=== PATIENT | male | born 1980 | race African-American/Black ===

== ENCOUNTER 2019-07-17 07:23 | Emergency (ER) | payer OTHER, MEDICARE ==
[2019-07-17] MEDS ORDERED: ONDANSETRON 4 MG TAB.RAPDIS PO ONE (07:34)
[2019-07-17 08:05] LABS: ABSOLUTE EOSINOPHILS # (AUTO) 0.5 10^3/uL (0.0-0.6); ABSOLUTE LYMPHOCYTES (AUTO) 2.6 10^3/uL (0.5-4.7); ABSOLUTE MONOCYTES (AUTO) 0.6 10^3/uL (0.1-1.4); ABSOLUTE NEUT (AUTO) 3.1 10^3/uL (1.7-8.2); BASOPHILS % (AUTO) 0.3 % (0-2); HEMATOCRIT 40.6 % (37.9-51.0); HEMOGLOBIN 13.6 g/dL (13.5-17.0); LYMPHOCYTES % (AUTO) 38.6 % (13-45); MEAN CORPUSCULAR HEMOGLOBIN 27.6 pg (27.0-33.4); MEAN CORPUSCULAR HGB CONC 33.4 g/dL (32.0-36.0); MEAN CORPUSCULAR VOLUME 83 fl (80-97); MONOCYTES % (AUTO) 8.8 % (3-13); PLATELET COUNT 239 10^3/uL (150-450); RED BLOOD COUNT 4.92 10^6/uL (4.35-5.55); RED CELL DISTRIBUTION WIDTH 13.7 % (11.5-14.0); SEGMENTED NEUTROPHILS % (AUTO) 45.3 % (42-78); TOTAL CELLS COUNTED % (AUTO) 100 %; WHITE BLOOD COUNT 6.8 10^3/uL (4.0-10.5)
[2019-07-17 08:19] LABS: ALBUMIN 4.5 g/dL (3.5-5.0); ALKALINE PHOSPHATASE 65 U/L (38-126); ANION GAP 8 (5-19); ASPARTATE AMINO TRANSFERASE 35 U/L (17-59); BILIRUBIN,DIRECT 0.1 mg/dL (0.0-0.4); BILIRUBIN,TOTAL 1.1 mg/dL (0.2-1.3); BLOOD UREA NITROGEN 16 mg/dL (7-20); CALCIUM 9.7 mg/dL (8.4-10.2); CARBON DIOXIDE 29 mmol/L (22-30); CHLORIDE 103 mmol/L (98-107); GLUCOSE 89 mg/dL (75-110); POTASSIUM 4.4 mmol/L (3.6-5.0); TOTAL PROTEIN 7.6 g/dL (6.3-8.2)
[2019-07-17 09:46] LABS: APPEARANCE,URINE CLEAR; BILIRUBIN,URINE NEGATIVE (NEGATIVE); COLOR,URINE STRAW; GLUCOSE, URINE NEGATIVE (NEGATIVE); KETONES,URINE NEGATIVE (NEGATIVE); LEUKOCYTE ESTERASE,URINE NEGATIVE (NEGATIVE); NITRITE,URINE NEGATIVE (NEGATIVE); PROTEIN,URINE NEGATIVE (NEGATIVE); URINE SPECIFIC GRAVITY 1.006; UROBILINOGEN,URINE NEGATIVE mg/dL (<2.0)
--- NOTE | 2019-07-17 10:45 | ER Document Report ---
ED General - General Chief Complaint: Vomiting Stated Complaint: WEAKNESS Time Seen by Provider: 07/17/19 07:28 Primary Care Provider: OCTAVIO NAM PA-C [Primary Care Provider] - Follow up as needed Mode of Arrival: Ambulatory Information source: Patient - [facility] Notes: Patient presents complaining of some generalized weakness. States he has had some nausea as well as some diarrhea. States she is just had lack of energy. He denies any's pain. No fevers or rashes. Patient states his symptoms have been mild to moderate. Nothing makes them better or worse. There is no radiation of the symptoms. They have been constant for the last 2 to 3 days. - Related Data Allergies/Adverse Reactions: No Known Allergies Allergy (Unverified 07/17/19 07:32) Past Medical History - General Information source: Patient - Social History Smoking Status: Never Smoker Frequency of alcohol use: None Drug Abuse: None Family History: Reviewed & Not Pertinent Patient has suicidal ideation: No Patient has homicidal ideation: No Psychiatric Medical History: Reports: Hx Attention Deficit Hyperactivity Disorder Review of Systems - Review of Systems Constitutional: Malaise, Weakness. denies: Chills, Fever Cardiovascular: denies: Chest pain, Palpitations Respiratory: denies: Cough, Short of breath -: Yes All other systems reviewed and negative Physical Exam - Vital signs Vitals: Pulse Resp BP Pulse Ox 81 16 131/84 H 95 07/17/19 07:27 07/17/19 07:27 07/17/19 07:27 07/17/19 07:27 Interpretation: Normal - General General appearance: Appears well, Alert - HEENT Head: Normocephalic, Atraumatic Eyes: Normal Pupils: PERRL - Respiratory Respiratory status: No respiratory distress Chest status: Nontender Breath sounds: Normal Chest palpation: Normal - Cardiovascular Rhythm: Regular Heart sounds: Normal auscultation Murmur: No - Abdominal Inspection: Normal Distension: No distension Bowel sounds: Normal Tenderness: Nontender Organomegaly: No organomegaly - Back Back: Normal, Nontender - Extremities General upper extremity: Normal inspection, Nontender, Normal color, Normal ROM, Normal temperature General lower extremity: Normal inspection, Nontender, Normal color, Normal ROM, Normal temperature, Normal weight bearing. No: Ghassan's sign - Neurological Neuro grossly intact: Yes Cognition: Normal Orientation: AAOx4 [place] Coma Scale Eye Opening: Spontaneous [place] Coma Scale Verbal: Oriented [place] Coma Scale Motor: Obeys Commands [place] Coma Scale Total: 15 Speech: Normal Motor strength normal: LUE, RUE, LLE, RLE Sensory: Normal - Psychological Associated symptoms: Normal affect, Normal mood - Skin Skin Temperature: Warm Skin Moisture: Dry Skin Color: Normal Course - Re-evaluation Re-evalutation: 07/17/19 10:44 Patient reexamined just now. Vital signs are unremarkable. Patient resting comfortably in the bed. Laboratory exam is unremarkable as well. I feel this patient most likely has a viral syndrome and I will discharge and follow-up as an outpatient. - Vital Signs Vital signs: Temp Pulse Resp BP Pulse Ox 81 16 131/84 H 95 07/17/19 07:27 07/17/19 07:27 07/17/19 07:27 07/17/19 07:27 - Laboratory Result Diagrams: 07/17/19 07:40 07/17/19 07:40 Laboratory results interpreted by me: 07/17/19 07:40 Eos % (Auto) 7.0 H Discharge - Discharge Clinical Impression: Viral syndrome Condition: Stable Disposition: HOME, SELF-CARE Instructions: Viral Syndrome ([facility]) Additional Instructions: Please call your primary care doctor as soon as possible to arrange follow-up Prescriptions: Ondansetron [Zofran Odt 4 mg Tablet] 1 - 2 tab PO Q4H PRN #15 tab.rapdis PRN Reason: For Nausea/Vomiting Referrals: OCTAVIO NAM PA-C [Primary Care Provider] - Follow up tomorrow
[2019-07-17 10:55] VITALS: BP 120/78
== END 2019-07-17 10:54 | disposition home or self-care (01) ==
LOC: ER 07:23
DX: B34.9 Viral infection, unspecified (principal); R53.1 Weakness; R19.7 Diarrhea, unspecified; R11.2 Nausea with vomiting, unspecified
CPT/HCPCS: 36415; 85025; 80053; 81001; S0119; 99283

== ENCOUNTER 2019-10-14 10:41 | Observation (INO) | payer MEDICARE, OTHER ==
--- NOTE | 2019-10-14 13:18 | ER Document Report ---
HPI - HPI Patient complains to provider of: Rash to groin area Time Seen by Provider: 10/14/19 13:12 Onset: Other - Monday Severity: Severe Pain Level: 5 Context: 38-year-old male with no prior history reporting he is not sexually active presents the emergency department with rash to his groin area. Reports it started on Monday. Reports it is red and he has noticed some pus. Denies pain with food. Reports he is voiding without problems. Denies fever vomiting diarrhea. Reports he has been belching a lot. Denies penile discharge. Denies testicular pain. Associated Symptoms: None Exacerbated by: Denies Relieved by: Denies Similar symptoms previously: No Recently seen / treated by doctor: No - REPRODUCTIVE Reproductive: DENIES: : Past Medical History - General Information source: Patient - Social History Smoking Status: Never Smoker Cigarette use (# per day): No Frequency of alcohol use: None Drug Abuse: None Family History: Reviewed & Not Pertinent Patient has suicidal ideation: No Patient has homicidal ideation: No Psychiatric Medical History: Reports: Hx Attention Deficit Hyperactivity Disorder Surgical Hx: Negative Vertical Provider Document - CONSTITUTIONAL Agree With Documented VS: Yes Exam Limitations: No Limitations General Appearance: WD/WN, No Apparent Distress - INFECTION CONTROL TRAVEL OUTSIDE OF THE [place] IN LAST 30 DAYS: No - HEENT HEENT: Atraumatic, Normocephalic, PERRLA. negative: Conjuctival Injection - NECK Neck: Normal Inspection, Supple. negative: Lymphadenopathy-Left, Lymphadenopathy-Right - RESPIRATORY Respiratory: Breath Sounds Normal, No Respiratory Distress - CARDIOVASCULAR Cardiovascular: Regular Rate - GI/ABDOMEN Gastrointestinal: Abdomen Soft, Abdomen Non-Tender - MUSCULOSKELETAL/EXTREMETIES Musculoskeletal/Extremeties: MAEW, FROM, Non-Tender - NEURO Level of Consciousness: Awake, Alert, Appropriate - DERM Integumentary: Warm, Dry Course - Re-evaluation Re-evalutation: 10/14/19 16:14 This 38-year-old male presents emergency department with complaints of rash to his groin. Upon assessment it was noted he had a scrotal abscess. Dr. Stuart was contacted. Dr. Stuart assessed patient and is taking him to the OR. Dictation of this chart was performed using voice recognition software; therefore, there may be some unintended grammatical errors. - Vital Signs Vital signs: Temp Pulse Resp BP Pulse Ox 98.7 F 100 16 150/95 H 96 10/14/19 13:12 10/14/19 11:11 10/14/19 13:12 10/14/19 11:11 10/14/19 13:12 - Consults dr stuart Time consulted: 15:15 Reason for consultation: 10/14/19 15:15 scrotal abscess Discharge - Discharge Clinical Impression: Groin rash, Scrotal abscess Condition: Stable Disposition: ADMITTED INPATIENT
[2019-10-14 13:40] LABS: APPEARANCE,URINE CLEAR; BILIRUBIN,URINE NEGATIVE (NEGATIVE); COLOR,URINE YELLOW; GLUCOSE, URINE NEGATIVE (NEGATIVE); KETONES,URINE NEGATIVE (NEGATIVE); LEUKOCYTE ESTERASE,URINE NEGATIVE (NEGATIVE); NITRITE,URINE NEGATIVE (NEGATIVE); PROTEIN,URINE NEGATIVE (NEGATIVE); UROBILINOGEN,URINE NEGATIVE mg/dL (<2.0)
--- NOTE | 2019-10-14 16:56 | PDOC H&P ---
History of Present Illness Admission Date/PCP: GRISEL MARX MD Patient complains of: Scrotal pain, swelling History of Present Illness: RADHA MUÑIZ is a 38 year old male Presents to the emergency room via ground rescue complaining 1 week history of swelling, pain, drainage from right hemiscrotum. Patient has a remote history of right testicular torsion. Patient seen in the emergency department where he was found to have swelling, redness, tenderness and an open wound to the right hemiscrotum. Surgery was consulted and he was advised drainage procedure in the operating room. Past Medical History Medical History: None Psychiatric Medical History: Reports: Attention Deficit Hyperactivity Disorder Past Surgical History Past Surgical History: Detorsion of right testicle Social History Information Source: Patient Smoking Status: Never Smoker Electronic Cigarette use?: No Hx Recreational Drug Use: No Family History Family History: None, Reviewed & Not Pertinent Parental Family History Reviewed: No Children Family History Reviewed: No Sibling(s) Family History Reviewed.: No Medication/Allergy Home Medications: Ondansetron [Zofran Odt 4 mg Tablet] 1 - 2 tab PO Q4H PRN #15 tab.rapdis 07/17/19 Allergies/Adverse Reactions: No Known Allergies Allergy (Unverified 07/17/19 07:32) Review of Systems Constitutional: PRESENT: as per HPI Eyes: ABSENT: visual disturbances Ears: ABSENT: hearing changes Cardiovascular: ABSENT: chest pain, dyspnea on exertion, edema, orthropnea, palpitations Genitourinary: ABSENT: dysuria, hematuria Musculoskeletal: ABSENT: joint swelling Integumentary: ABSENT: rash, wounds Neurological: ABSENT: abnormal gait, abnormal speech, confusion, dizziness, focal weakness, syncope Physical Exam Vital Signs: Temp Pulse Resp BP Pulse Ox 98.7 F 100 16 150/95 H 96 10/14/19 13:12 10/14/19 11:11 10/14/19 13:12 10/14/19 11:11 10/14/19 13:12 Intake & Output 10/13/19 10/14/19 10/15/19 06:59 06:59 06:59 Weight 95.254 kg General appearance: PRESENT: no acute distress Head exam: PRESENT: normocephalic Eye exam: PRESENT: EOMI Mouth exam: PRESENT: dry mucosa Neck exam: PRESENT: full ROM Respiratory exam: PRESENT: clear to auscultation zenaida Cardiovascular exam: PRESENT: RRR Pulses: PRESENT: normal carotid pulses, normal radial pulses, normal femoral pulses, normal dorsalis pedis pul GI/Abdominal exam: PRESENT: soft Rectal exam: PRESENT: deferred Gentrourinary exam: PRESENT: other - Right hemiscrotum, swollen, boggy; towards the median raphae on the right side is an open wound with eschar, thickening and seropurulent discharge. The testicles appear to be distended in the scrotal sac. Extremities exam: PRESENT: full ROM Musculoskeletal exam: PRESENT: full ROM Neurological exam: PRESENT: oriented to person, oriented to place, oriented to time, oriented to situation Psychiatric exam: PRESENT: other - Alert and oriented x4 Skin exam: PRESENT: dry Results Laboratory Results: 10/14/19 13:20 Urine Color YELLOW Urine Appearance CLEAR Urine pH 6.0 Ur Specific [place] 1.020 Urine Protein NEGATIVE Urine Glucose (UA) NEGATIVE Urine Ketones NEGATIVE Urine Blood NEGATIVE Urine Nitrite NEGATIVE Ur Leukocyte Esterase NEGATIVE Urine WBC (Auto) 0 Urine RBC (Auto) 2 Assessment & Plan - Diagnosis (1) Scrotal abscess Is this a current diagnosis for this admission?: Yes Plan: Impression: Subacute scrotal abscess inadequately drained Recommendations: 1. Admit for observation, scrotal abscess drainage in the operating room under LMAC anesthesia, 30 minutes, possible drain placement. Risk benefits and alternatives to the planned procedure explained. Patient expresses understanding agrees to proceed. (2) Groin rash Is this a current diagnosis for this admission?: Yes - Time Time Spent: 30 to 50 Minutes Medications reviewed and adjusted accordingly: Yes Anticipated discharge: Home - Inpatient Certification Based on my medical assessment, after consideration of the patient's comorbidities, presenting symptoms, or acuity I expect that the services needed warrant INPATIENT care.: Yes I certify that my determination is in accordance with my understanding of Medicare's requirements for reasonable and necessary INPATIENT services [42 CFR 412.3e].: Yes Medical Necessity: Need For IV Fluids, Need for Pain Control, Need for IV Antibiotics
[2019-10-14] MEDS ORDERED: CEFAZOLIN 1 GM/D5W RTU 1 GM/50 ML RTUPB IV SCH (17:00)
[2019-10-14] MEDS ORDERED: RINGERS SOLUTION,LACTATED 1,000 ML IV PRN (17:02)
[2019-10-14] MEDS ORDERED: MIDAZOLAM 2 MG/2 ML INJ ONE (17:47)
[2019-10-14] MEDS ORDERED: PROPOFOL INJ 200 MG/20 ML VIAL IV ONE (17:47)
[2019-10-14] MEDS ORDERED: FENTANYL CITRATE INJ/PF 100 MCG/2 ML AMPUL ONE (17:47)
[2019-10-14] MEDS ORDERED: LIDOCAINE 2% INJ-PF (20 MG/ML) 10 ML AMPUL ONE (17:47)
[2019-10-14] MEDS ORDERED: LIDOCAINE 0.5% INJ-PF (5 MG/ML) 50 ML SDV ONE (18:05)
[2019-10-14] MEDS ORDERED: BUPIVACAINE HCL 0.25 % INJ/PF (2.5 MG/1 ML) 30 ML VIAL ONE (18:05)
[2019-10-14] MEDS ORDERED: DIPHENHYDRAMINE HCL 50 MG/ML VIAL IV PRN (18:55)
[2019-10-14] MEDS ORDERED: PROMETHAZINE HCL INJ 25 MG/1 ML VIAL IV PRN ×2 (18:55)
[2019-10-14] MEDS ORDERED: FENTANYL CITRATE INJ/PF 100 MCG/2 ML AMPUL IV PRN ×3 (18:55)
[2019-10-14] MEDS ORDERED: ONDANSETRON HCL INJ/PF 4 MG/2 ML SDV IV PRN (18:55)
--- NOTE | 2019-10-14 19:10 | Operative Report ---
Operative Report DATE OF SURGERY: 10/14/19 PREOPERATIVE DIAGNOSIS: Right scrotal abscess POSTOPERATIVE DIAGNOSIS: Same OPERATION: Drainage, debridement and packing of right hemiscrotal abscess SURGEON: MICHELLE MEDRANO ANESTHESIA: LMAC TISSUE REMOVED OR ALTERED: Nonviable skin subcutaneous tissue and pus COMPLICATIONS: None ESTIMATED BLOOD LOSS: Minimal INTRAOPERATIVE FINDINGS: See below PROCEDURE: The patient was taken to the preop holding area to the main operating room where LMAC anesthesia was induced. Legs were frog legged, and feet taped into position. The scrotum and genitalia were prepped and draped sterile fashion. Surgical plan and surgical timeout were conducted. The skin overlying the actively draining abscess of the right hemiscrotum was anesthetized 1% plain lidocaine. An irregular circular plug of skin approximately 2 and half centimeters diameter was cut full-thickness down into the soft tissue of the right hemiscrotum. The dartos muscle was not violated. Loculations were broken up, and drainage sent for Gram stain culture and sensitivity. There was no meg pus, but seropurulent material. Wound irrigated with saline and packed with half-inch iodoform packing approximately 18 inches. 4 x 4's applied. Patient tolerated procedure well.
[2019-10-14] MEDS ORDERED: OXYCODONE-ACETAMINOPHEN 5-325 MG TABLET PO PRN (19:14)
[2019-10-14] MEDS ORDERED: CEFAZOLIN INJ 1 GM VIAL ONE (20:46)
[2019-10-14] MEDS ORDERED: OXYCODONE-ACETAMINOPHEN 5-325 MG TABLET ONE (20:49)
[2019-10-14] MEDS ORDERED: ACETAMINOPHEN 325 MG TABLET ONE (21:22)
[2019-10-14] MEDS ORDERED: CEFAZOLIN SODIUM 1 GM in DEXTROSE 5%-WATER 50 ML IV SCH (22:00)
--- NOTE | 2019-10-14 22:57 | RADIOLOGY REPORT (SQ) ---
EXAM DESCRIPTION: [facility]: XR CHEST 1 VIEW CLINICAL HISTORY: 38 years Male, POST OP COMPARISON: None. FINDINGS: Lungs: Lungs are clear, with no focal infiltrate, pneumothorax, or pleural effusion. Mediastinum: Mediastinum is within normal limits for this positioning. Bones: Bony structures are unremarkable. IMPRESSION: 1. No acute pulmonary findings.
[2019-10-14] MEDS ORDERED: NORMAL SALINE 1000 ML 1,000 ML IV ONE (23:00)
[2019-10-14 23:40] LABS: ABSOLUTE EOSINOPHILS # (AUTO) 0.1 10^3/uL (0.0-0.6); ABSOLUTE LYMPHOCYTES (AUTO) 0.9 10^3/uL (0.5-4.7); ABSOLUTE MONOCYTES (AUTO) 0.6 10^3/uL (0.1-1.4); ABSOLUTE NEUT (AUTO) 5.8 10^3/uL (1.7-8.2); BASOPHILS % (AUTO) 0.1 % (0-2); EOSINOPHILS % (AUTO) 0.8 % (0-6); HEMATOCRIT 38.9 % (37.9-51.0); HEMOGLOBIN 13.2 g/dL (13.5-17.0); LYMPHOCYTES % (AUTO) 11.9 % (13-45); MEAN CORPUSCULAR HEMOGLOBIN 27.2 pg (27.0-33.4); MEAN CORPUSCULAR VOLUME 80 fl (80-97); MONOCYTES % (AUTO) 8.7 % (3-13); PLATELET COUNT 209 10^3/uL (150-450); RED BLOOD COUNT 4.86 10^6/uL (4.35-5.55); RED CELL DISTRIBUTION WIDTH 14.1 % (11.5-14.0); SEGMENTED NEUTROPHILS % (AUTO) 78.5 % (42-78); TOTAL CELLS COUNTED % (AUTO) 100 %; WHITE BLOOD COUNT 7.4 10^3/uL (4.0-10.5)
[2019-10-15] LABS: ANION GAP 12 (5-19); BLOOD UREA NITROGEN 15 mg/dL (7-20); CALCIUM 9.4 mg/dL (8.4-10.2); CARBON DIOXIDE 28 mmol/L (22-30); CHLORIDE 97 mmol/L (98-107); GLUCOSE 99 mg/dL (75-110); POTASSIUM 4.1 mmol/L (3.6-5.0)
[2019-10-15] MEDS ORDERED: ACETAMINOPHEN 325 MG TABLET PO PRN
[2019-10-15] MEDS ORDERED: CEFAZOLIN 1 GM/D5W RTU 2 GM/100 ML RTUPB IV ONE (00:07)
[2019-10-15] MEDS ORDERED: CEFAZOLIN SODIUM 1 GM in DEXTROSE 5%-WATER 50 ML IV ONE (00:45)
[2019-10-15] MEDS ORDERED: CEFAZOLIN SODIUM 1 GM in DEXTROSE 5%-WATER 50 ML IV SCH (06:00)
[2019-10-15 12:30] VITALS: BP 151/78
--- NOTE | 2019-10-17 16:21 | PDOC DISCHARGE SUMMARY ---
General - Admit/Disc Date/PCP Admission Date/Primary Care Provider: 10/14/19 17:12 GRISEL MARX MD Discharge Date: 10/15/19 - Discharge Diagnosis Final Diagnosis: Right scrotal abscess - Additional Information Discharge Diet: Regular Discharge Activity: No tub bath Referrals: MICHELLE MEDRANO MD [ACTIVE STAFF] - 10/29/19 1:15 pm Home Medications: Ondansetron [Zofran Odt 4 mg Tablet] 1 - 2 tab PO Q4H PRN #15 tab.rapdis 07/17/19 Metronidazole [Flagyl 500 mg Tablet] 500 mg PO BID 10/14/19 Omeprazole 40 mg PO DAILY 10/14/19 Quetiapine Fumarate [Seroquel] 400 mg PO DAILY 10/14/19 History of Present Illiness History of Present Illness: RADHA MUÑIZ is a 38 year old male with a week of pains in the right scrotal area and noted redness tenderness and small amount of drainage. Hospital Course Hospital Course: Underwent drainage, debridement and packing of right scrotal abscess on 10/14/[address] Medrano. The next day packing was removed and there is no drainage and patient subsequently discharged on p.o. Cipro 500 mg p.o. twice a day for next 7 days. Patient to be followed up in the surgical clinic in 2 weeks. Patient advised to do daily shower with chlorhexidine and wash the scrotal area with soap and water. Physical Exam Vital Signs: Temp Pulse Resp BP Pulse Ox 99.9 F 94 17 151/78 H 95 10/15/19 12:24 10/15/19 12:24 10/15/19 12:24 10/15/19 12:24 10/15/19 12:24 Exam: Redness tenderness and some drainage from the right sclera scrotal area Results Laboratory Results: WBC 7.4 10^3/uL (4.0-10.5) 10/14/19 23:25 RBC 4.86 10^6/uL (4.35-5.55) 10/14/19 23:25 Hgb 13.2 g/dL (13.5-17.0) L 10/14/19 23:25 Hct 38.9 % (37.9-51.0) 10/14/19 23:25 MCV 80 fl (80-97) 10/14/19 23:25 MCH 27.2 pg (27.0-33.4) 10/14/19 23:25 MCHC 34.0 g/dL (32.0-36.0) 10/14/19 23:25 RDW 14.1 % (11.5-14.0) H 10/14/19 23:25 Plt Count 209 10^3/uL (150-450) 10/14/19 23:25 Lymph % (Auto) 11.9 % (13-45) L 10/14/19 23:25 Angelina % (Auto) 8.7 % (3-13) 10/14/19 23:25 Eos % (Auto) 0.8 % (0-6) 10/14/19 23:25 Baso % (Auto) 0.1 % (0-2) 10/14/19 23:25 Absolute Neuts (auto) 5.8 10^3/uL (1.7-8.2) 10/14/19 23:25 Absolute Lymphs (auto) 0.9 10^3/uL (0.5-4.7) 10/14/19 23:25 Absolute Monos (auto) 0.6 10^3/uL (0.1-1.4) 10/14/19 23:25 Absolute Eos (auto) 0.1 10^3/uL (0.0-0.6) 10/14/19 23:25 Absolute Basos (auto) 0.0 10^3/uL (0.0-0.2) 10/14/19 23:25 Seg Neutrophils % 78.5 % (42-78) H 10/14/19 23:25 Sodium 137.2 mmol/L (137-145) 10/14/19 23:25 Potassium 4.1 mmol/L (3.6-5.0) 10/14/19 23:25 Chloride 97 mmol/L (98-107) L 10/14/19 23:25 Carbon Dioxide 28 mmol/L (22-30) 10/14/19 23:25 Anion Gap 12 (5-19) 10/14/19 23:25 BUN 15 mg/dL (7-20) 10/14/19 23:25 Creatinine 0.95 mg/dL (0.52-1.25) 10/14/19 23:25 Est GFR ( Amer) > 60 (>60) 10/14/19 23:25 Est GFR (MDRD) Non-Af > 60 (>60) 10/14/19 23:25 Glucose 99 mg/dL (75-110) 10/14/19 23:25 Calcium 9.4 mg/dL (8.4-10.2) 10/14/19 23:25 Urine Color YELLOW 10/14/19 13:20 Urine Appearance CLEAR 10/14/19 13:20 Urine pH 6.0 (5.0-9.0) 10/14/19 13:20 Ur Specific [place] 1.020 10/14/19 13:20 Urine Protein NEGATIVE mg/dL (NEGATIVE) 10/14/19 13:20 Urine Glucose (UA) NEGATIVE mg/dL (NEGATIVE) 10/14/19 13:20 Urine Ketones NEGATIVE mg/dL (NEGATIVE) 10/14/19 13:20 Urine Blood NEGATIVE (NEGATIVE) 10/14/19 13:20 Urine Nitrite NEGATIVE (NEGATIVE) 10/14/19 13:20 Urine Bilirubin NEGATIVE (NEGATIVE) 10/14/19 13:20 Urine Urobilinogen NEGATIVE mg/dL (<2.0) 10/14/19 13:20 Ur Leukocyte Esterase NEGATIVE (NEGATIVE) 10/14/19 13:20 Urine WBC (Auto) 0 /HPF 10/14/19 13:20 Urine RBC (Auto) 2 /HPF 10/14/19 13:20 Urine Mucus (Auto) RARE /LPF 10/14/19 13:20 Urine Ascorbic Acid 20 (NEGATIVE) H 10/14/19 13:20 Impressions: Chest X-Ray 10/14/19 00:00 IMPRESSION: 1. No acute pulmonary findings.
== END 2019-10-15 13:53 | disposition home or self-care (01) ==
LOC: ER 10:41 → EH 17:12 → 5 22:47
PROVIDERS: ADMIT Surgery; ATTEND Surgery
DX: N49.2 Inflammatory disorders of scrotum (principal); R21 Rash and other nonspecific skin eruption; R14.2 Eructation; Z98.890 Other specified postprocedural states; Z87.438 Personal history of other diseases of male genital organs
CPT/HCPCS: 99284; 36415; 87070; 87205; 85025; 87075; 87077; 80048; 81001; 87186; 71045; 00920; 11043; 55899; G0378 ×3; A9270 ×3; J2250; J0690 ×2; J3010; J7060; J7120; J2704; J3490; 920